=== PATIENT | female | born 1975 | race Caucasian/White ===

== ENCOUNTER 2017-09-02 13:53 | Emergency (ER) | payer MEDICAID ==
[~2017-09-02] VITALS: Ht 157.5 cm; Wt 61.7 kg
[2017-09-02 14:12] VITALS: BP 125/78; Ht 157.5 cm; Wt 61.7 kg
== END 2017-09-02 16:15 | disposition home or self-care (01) ==
LOC: ED 13:53
DX: J06.9 Acute upper respiratory infection, unspecified (principal); R82.71 Bacteriuria

== ENCOUNTER 2018-08-03 09:55 | Emergency (ER) | payer MEDICAID ==
[~2018-08-03] VITALS: Ht 157.5 cm; Wt 62.6 kg
[2018-08-03 09:58] VITALS: Ht 157.5 cm; Wt 62.6 kg
[2018-08-03 11:15] VITALS: BP 118/72
== END 2018-08-03 11:34 | disposition home or self-care (01) ==
LOC: ED 09:55
DX: S39.012A Strain of muscle, fascia and tendon of lower back, initial encounter (principal); X58.XXXA Exposure to other specified factors, initial encounter; Y93.89 Activity, other specified; Y92.89 Other specified places as the place of occurrence of the external cause; Y99.8 Other external cause status
CPT/HCPCS: J1885